=== PATIENT | male | born 1965 | race Caucasian/White ===

== ENCOUNTER 2017-12-22 08:34 | Emergency (ER) | payer OTHER ==
[2017-12-22 08:46] VITALS: BP 141/79
[2017-12-22] MEDS ORDERED: Tetan/Diph/Pertus SYR(Tdap)* 0.5 ML SYR(BOOSTRIX) use SYR IM ONE (08:59)
--- NOTE | 2017-12-22 13:37 | UC ---
Castro Mckeon Julia, scribed for Marin Machuca MD on 12/22/17 at 0914 . Bite Injury/Animal HPI - HPI Summary HPI Summary: This patient is a 52 year old M presenting to [facility] due to a dog bite in the right calf by his neighbors dog prior to arrival. He is unsure if the dogs vaccines are UTD. However he assumes the dog is, as it is a house dog. He will be able to watch the dog for the next few days and obtain its vaccine status. - History of Current Complaint Chief Complaint: UCBiteInjury Stated Complaint: DOG BITE Time Seen by Provider: 12/22/17 08:52 Hx Obtained From: Patient Pain Intensity: 0 Onset/Duration: Still Present Type of Bite: Pet Has Animal Been Immunized?: Unknown Character: Puncture Associated Signs And Symptoms: Positive: Negative Animal Available for Observation: Yes - Allergies/Home Medications Allergies/Adverse Reactions: Allergies Allergy/AdvReac Type Severity Reaction Status Date / Time Penicillins Allergy Hives Verified 12/22/17 08:46 PMH/Surg Hx/FS Hx/Imm Hx Previously Healthy: Yes - Surgical History Surgical History: None - Family History Known Family History: Positive: Hypertension - Social History Alcohol Use: Weekly Substance Use Type: None Smoking Status (MU): Never Smoked Tobacco - Immunization History Most Recent Tetanus Shot: will need Review of Systems Constitutional: Negative Skin: Other - animal bite R calf All Other Systems Reviewed And Are Negative: Yes Physical Exam - Summary Physical Exam Summary: VITAL SIGNS: Reviewed. GENERAL: Patient is a well developed and nourished male who is lying comfortable in the stretcher. Patient is not in any acute respiratory distress. HEAD AND FACE: Normocephalic EYES: PERRLA, EOMI x 2. EARS: Hearing grossly intact. MOUTH: Oropharynx within normal limits. NECK: Supple, trachea is midline, no adenopathy, no JVD, no carotid bruit. CHEST: Symmetric, no tenderness at palpation LUNGS: Clear to auscultation bilaterally. No wheezing or crackles. CVS: Regular rate and rhythm, S1 and S2 present, no murmurs or gallops appreciated. ABDOMEN: Soft, non-tender. Bowel sounds are normal. No abdominal abnormal pulsations. EXTREMITIES: Full ROM in all major joints, no edema, no cyanosis or clubbing. 2 puncture wounds in R calf; without significant bleeding NEURO: Alert and oriented x 3. No acute neurological deficits. Speech is normal and follows commands. SKIN: Dry and warm positive skin perforation of right calf Triage Information Reviewed: Yes Vital Signs: Initial Vital Signs Temp 97.9 F 12/22/17 08:42 Pulse 68 12/22/17 08:42 Resp 18 12/22/17 08:42 BP 141/79 12/22/17 08:42 Pulse Ox 98 12/22/17 08:42 Vital Signs Reviewed: Yes Bite Injury Course/Dx - Course Course Of Treatment: This patient is a 52 year old M presenting to [facility] due to a dog bite in the right calf by his neighbors dog prior to arrival. He is unsure if the dogs vaccines are UTD. However he assumes the dog is, as it is a house dog. He will be able to watch the dog for the next few days and obtain its vaccine status. Patient declines the rabies vaccine, and states he will watch the dog for the next couple of days for rabies indications and will ask his neighbors about the dogs vaccine status. Patient will be given Augmentin and Tetnus. I discussed all the findings with the patient. Patient was instructed to return to the urgent care or go to ER immediately if any of the symptoms return or worsens. Plan of care was discussed with the patient, and patient understands and agrees. All questions were answered to patient satisfaction. There were no further complaints or concerns. - Differential Dx/Diagnosis Provider Diagnoses: animal bite Discharge - Sign-Out/Discharge Documenting (check all that apply): Discharge/Admit/Transfer - Discharge Plan Condition: Stable Disposition: HOME Prescriptions: Clindamycin Cap(NF) [Clindamycin Cap 300 mg Cap(NF)] 300 mg PO Q6H #40 cap Patient Education Materials: Animal Bite (ED) Referrals: Raudel Shaw MD [Primary Care Provider] - Additional Instructions: Take medications as instructed Increase your fluid intake Return to the UC if symptoms worsen The documentation as recorded by the Castro lutz Julia accurately reflects the service I personally performed and the decisions made by me, Marin Machuca MD.
== END 2017-12-22 09:10 | disposition home or self-care (01) ==
LOC: UCEAST 08:34
DX: S81.851A Open bite, right lower leg, initial encounter (principal); W54.0XXA Bitten by dog, initial encounter; Y93.9 Activity, unspecified; Y92.9 Unspecified place or not applicable; Z88.0 Allergy status to penicillin
CPT/HCPCS: 90471; 90715; 99202; G0463